=== PATIENT | male | born 1965 | race Caucasian/White ===

== ENCOUNTER 2017-05-19 09:29 | Day surgery (SDC) | payer OTHER ==
[2017-05-13 11:38] VITALS: BMI 34.8
[~2017-05-19 09:29] MED LIST: LACTATED RINGERS 1,000 ML IV SCH
[2017-05-19 11:06] VITALS: TEMP 99
[2017-05-19] MEDS ORDERED: LIDOCAINE 1% 20 ML VIAL (10MG/ML) FOR IV START INTRADERMA ONE (11:12)
[2017-05-19] MEDS ORDERED: PROPOFOL 10 MG/ML 20 ML VIAL IV ONE (11:21)
[2017-05-19 12:19] VITALS: RESP 16
[2017-05-19 12:28] VITALS: BP 118/79; PULSE 80
--- NOTE | 2017-05-19 16:41 | P.PCN ---
Date of Procedure: 05/19/17 Procedure(s) Performed: Procedures: 1. Esophagogastroduodenoscopy and biopsy. 2. Colonoscopy and polypectomy. Preoperative diagnosis: Epigastric pain and rectal bleeding. Postoperative diagnosis: 1. Small sliding hiatal hernia with LA grade B esophagitis. 2. Mild antral gastritis. 3. Splenic flexure polyp snared but no large polyps or cancer. 4. Less than ideal preparation on the right side and cecum. 5. Low-grade internal hemorrhoids without bleeding at the time of this exam. Preparation: HalfLytely prep. Sedation: Was provided by anesthesia. Brief clinical history: The patient is a 51-year-old male who is referred for this evaluation for the above reasons. The patient has no family history of colon cancer. Denies any dysphagia or other alarm symptoms. This would be his first upper endoscopy and colonoscopy. Procedure: With the patient on his left lateral decubitus position and after informed consent and adequate sedation, I passed the Olympus-GIF 160 video upper endoscope through the cricopharyngeus down the esophagus. GE junction was around 40 cm from the incisors and there was a sliding hiatal hernia 1-2 cm in size. The distal esophagus showed couple short linear erosions consistent with reflux esophagitis. There was occasional white sticky exudate elsewhere in the esophagus. No strictures or Dobbs's esophagus. The endoscope was then passed into the stomach which was insufflated with air and inspected in detail including the retroflex view in the cardia. There was some mottling and erythema in the antrum but no ulcers or erosions. Pyloric channel, duodenal bulb, post bulbar area and descending duodenum did not show any ulcers or bleeding. I obtained biopsies from the duodenum, antrum and esophagus then the endoscope was withdrawn and I proceeded with the colonoscopy. Perianal area did not show any fissures or fistulas. There were no masses felt on digital rectal examination. The Olympus CFQ 160L video colonoscope was then inserted in the rectum in the usual fashion and advanced to the cecum. The preparation on the right side and cecum was less than ideal. There was a small polyp around the splenic flexure which was snared otherwise the exam show no obvious mucosal abnormalities or large polyps or cancer. I retroflexed the endoscope in the rectum before the endoscope was withdrawn. Low-grade internal hemorrhoids were noted with no lesions of bleeding at the time of this exam. The patient tolerated the procedure well. Plan: The patient was reassured. Will await biopsy results. Discussed dietary measures and local care for hemorrhoids. In light of his preparation I would recommend repeating his colonoscopy in 2-3 years. He will follow up with you as planned.
== END 2017-05-19 13:08 | disposition home or self-care (01) ==
LOC: ORWHC2ENDO 09:29
DX: K29.50 Unspecified chronic gastritis without bleeding (principal); K21.0 Gastro-esophageal reflux disease with esophagitis; D12.3 Benign neoplasm of transverse colon; K44.9 Diaphragmatic hernia without obstruction or gangrene; K64.8 Other hemorrhoids; Z79.899 Other long term (current) drug therapy
CPT/HCPCS: 88305; 88342; 45385; 43239; J2704

== ENCOUNTER 2019-12-13 08:28 | Day surgery (SDC) | payer OTHER ==
[2019-12-09 09:13] VITALS: BMI 33.9
[2019-12-13 08:52] VITALS: TEMP 97
[2019-12-13] MEDS ORDERED: PROPOFOL 10 MG/ML 20 ML VIAL IV ONE (09:10)
[2019-12-13] MEDS ORDERED: MIDAZOLAM 2 MG/2 ML VIAL ONE (09:10)
[2019-12-13] MEDS ORDERED: fentaNYL (PF) 50 MCG/ML 2 ML AMP ONE (09:10)
[2019-12-13] MEDS ORDERED: LIDOCAINE 1% INJ 10MG/ML (20 ML MDV) ONE (09:10)
--- NOTE | 2019-12-13 10:01 | P.PCN ---
Date of Procedure: 12/13/19 Description of Procedure: BRIEF HISTORY: Patient is a 54-year-old male with a history of colon cancer status post right hemicolectomy presenting for rectal bleeding for outpatient colonoscopy. Reports blood mixed with stool. No abdominal pain reported. No nausea or vomiting. Last colonoscopy was significant for a suboptimal prep. PROCEDURE PERFORMED: Colonoscopy with polypectomy. PREOPERATIVE DIAGNOSIS: Rectal bleeding, blood per rectum, personal history of colon cancer. ESTIMATED BLOOD LOSS: Minimal. IV sedation per Anesthesia. PROCEDURE: After informed consent was obtained, the patient, was brought into the endoscopy unit. IV sedation was administered by Anesthesia under continuous monitoring. Digital rectal examination was normal. Initially the Olympus CF-190 flexible video colonoscope was then inserted in the rectum, gradually advanced into the cecum without any difficulty. Careful examination was performed as the scope was gradually being withdrawn. Anastomotic site from prior colectomy identified and terminal ileum intubated and appeared normal. Prep was excellent. Mucosa of the anastomotic site, transverse colon, descending colon, sigmoid colon, and rectum appeared normal. Pedunculated 12 mm transverse colon polyp removed with hot snare polypectomy. Pedunculated 7 mm sigmoid colon polyp removed with cold snare polypectomy.Retroflexion was performed in the rectum and no lesions were seen, low-grade internal hemorrhoids. The patient tolerated the procedure well. IMPRESSION: Normal-appearing colon from rectum anastomotic site from prior colectomy with terminal ileum intubated and appeared normal. Pedunculated 12 mm transverse colon polyp removed with hot snare polypectomy. Pedunculated 7 mm sigmoid colon polyp removed with cold snare polypectomy. Low-grade internal hemorrhoids. RECOMMENDATIONS: Findings of this examination were discussed with the patient. Okay to resume diet. Okay to resume medications. Await pathology from polypectomies. Would recommend repeat colonoscopy in 3 years for high-risk colon polyps. Local hemorrhoidal care if further bleeding.
[2019-12-13 10:14] VITALS: BP 123/89; PULSE 74; RESP 18
== END 2019-12-13 10:36 | disposition home or self-care (01) ==
LOC: ORWHC2ENDO 08:28
PROVIDERS: ATTEND Internal Medicine
DX: D12.5 Benign neoplasm of sigmoid colon (principal); D12.3 Benign neoplasm of transverse colon; K64.8 Other hemorrhoids; Z85.038 Personal history of other malignant neoplasm of large intestine; I10 Essential (primary) hypertension; J45.909 Unspecified asthma, uncomplicated; K21.9 Gastro-esophageal reflux disease without esophagitis; Z90.49 Acquired absence of other specified parts of digestive tract; Z87.891 Personal history of nicotine dependence; Z79.899 Other long term (current) drug therapy; Z98.890 Other specified postprocedural states; Z88.6 Allergy status to analgesic agent
CPT/HCPCS: 88305; 45385; J2250; J2001; J3010; J2704